=== PATIENT | male | born 1975 | race Two or more races ===

== ENCOUNTER 2020-01-31 06:14 | Emergency (ER) | payer MEDICAID, SELFPAY ==
[~2020-01-31] VITALS: Ht 182.9 cm; Wt 90.0 kg
[2020-01-31 06:16] VITALS: BP 123/62
--- NOTE | 2020-01-31 06:38 | NUR ---
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 WALKED OUT TO RN STATION AND STARTED SHOUTING AT STAFF. "I NEED TO TALK TO THE SHERRIF RIGHT NOW, THAT IS WHY I AM HERE." WHEN ASKED TO GO BACK TO HIS ROOM PT. STATES "I AM NOT GOING BACK TO MY ROOM UNTIL THE SHERRIF COMES, THAT IS THE ONLY REASON I AM HERE." PT. PROCEDED TO WALK OUT OF ED WITH STEADY GAIT. NATALIIA MONIQUE MADE AWARE OF THIS.
== END 2020-01-31 06:41 | disposition home or self-care (01) ==
LOC: CANPREER → ED 06:33
DX: R53.83 Other fatigue (principal); Z90.49 Acquired absence of other specified parts of digestive tract
CPT/HCPCS: 99281

== ENCOUNTER 2020-09-04 22:14 | Emergency (ER) | payer MEDICAID ==
[~2020-09-04] VITALS: Ht 182.9 cm; Wt 102.5 kg
--- NOTE | 2020-09-04 22:23 | NUR ---
BIB EMS POST ALTERCATION WITH LAW [employer]. PT RAN AND WAS BROUGHT TO THE GROUND. NOW C/O BILAT SHOULDER PAIN. pt refused all meds for ems and by rn. pt nad, resting on rhockessin, bed in [facility], rails engaged, [facility]ctm. waiting for imaging.
[2020-09-04] MEDS ORDERED: IBUPROFEN 600 MG TABLET ONE (22:36)
[2020-09-04] MEDS ORDERED: DIPH,PERTUSS(ACELL),TET VAC/PF 0.5 ML IM-VACC ONE ×2 (22:36→23:00)
[2020-09-04] MEDS ORDERED: IBUPROFEN 600 MG TABLET PO ONE (23:00)
--- NOTE | 2020-09-05 00:21 | NUR ---
PT RESTING ON GURNEY, NAD, EYES CLOSED, EVEN AND UNLABORED RESPIRATIONS NOTED, APPEARS COMFORTABLE, PT CHART UP FOR RCK, WCTM, BED IN LOWEST RAILS ENGAGED.
[2020-09-05 00:38] VITALS: BP 107/67
--- NOTE | 2020-09-05 00:51 | NUR ---
Patient/[employer] given discharge instructions and they have confirmed that they understand the instructions. Patient ambulatory with steady gait. NAD, CLEARED MEDICALLY.
== END 2020-09-05 00:53 | disposition home or self-care (01) ==
LOC: ED 22:37
DX: S60.512A Abrasion of left hand, initial encounter (principal); S60.511A Abrasion of right hand, initial encounter; G89.11 Acute pain due to trauma; M54.2 Cervicalgia; Z90.49 Acquired absence of other specified parts of digestive tract; X58.XXXA Exposure to other specified factors, initial encounter; Y93.89 Activity, other specified; Y92.89 Other specified places as the place of occurrence of the external cause; Y99.8 Other external cause status
CPT/HCPCS: 70450; 72125; 99285